=== PATIENT | female | born 1990 | race Caucasian/White ===

== ENCOUNTER 2019-11-03 20:04 | Emergency (ER) | payer OTHER, SELFPAY ==
[2019-11-03 20:12] VITALS: BP 128/78; PULSE 105; RESP 16; TEMP 36.7; O2SAT 96; BMI 19.7
--- NOTE | 2019-11-03 20:51 | DI.RAD.S_ITS ---
PROCEDURE: XR HAND RT MIN 3V INDICATIONS: 1st metacarpal pain, s/p Foosh TECHNIQUE: 3 views of the hand(s) acquired. COMPARISON: None. FINDINGS: Bones: No fractures or dislocations. Carpal bones are normally aligned. No suspicious bony lesions. Soft tissues: No suspicious soft tissue calcifications. IMPRESSION: No acute finding. Dictated by: Michele Wong M.D. on 11/03/2019 at 21:11 Approved by: Michele Wong M.D. on 11/03/2019 at 21:12
--- NOTE | 2019-11-03 20:53 | ED.FALL ---
HPI - Fall <JLUIS Rogers - Last Filed: 11/04/19 03:07> General Chief Complaint: Fall Stated Complaint: CONCUSSION Time Seen by Provider: 11/03/19 20:47 Source: patient Mode of arrival: Ambulatory Limitations: no limitations History of Present Illness HPI Narrative: This is a pleasant 29-year-old female, nonsmoker, without noncontributing medical history presents to ED with family with chief complain of left-sided headache, nausea, laceration to right scalp, right thumb metacarpal pain with movement after she fell. Patient was bathing a dog stepped on a puddle of water and slipped and fell struck her right-sided head to a door on door jam and s/p FOOSH on right dominant hand about 6 hours ago. Patient denies losing consciousness, vision change, vomiting, or seizure activities after the fall. Patient reports throbbing pain in her right hand worsens with movement. She reports intact sensation. 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 Reports current on tetanus immunization. She is not on anticoagulants. Related Data Allergies Allergy/AdvReac Type Severity Reaction Status Date / Time cephalexin AdvReac Verified 11/03/19 21:24 Sulfa (Sulfonamide AdvReac Verified 11/03/19 21:23 Antibiotics) Review of Systems <JLUIS Rogers - Last Filed: 11/04/19 03:07> Review of Systems Narrative: General: Denies fever, chills, fatigue, malaise, sweats. HEENT: See HPI Respiratory: Denies dyspnea, cough, wheezing, hemoptysis, sputum. Cardiovascular: Denies chest pain, palpitations, orthopnea, edema. Gastrointestinal: Denies nausea, vomiting, abdominal pain, diarrhea, constipation, melena. : Denies dysuria, frequency, incontinence, hematuria, urinary retention. Musculoskeletal: Denies weakness, joint pain or bony pain. Skin: See HPI Neurologic: See HPI Psychiatric: No concerning psychosocial issues. 12-point review of systems is negative except for those stated above. Patient History <JLUIS Rogers - Last Filed: 11/04/19 03:07> Medical History (Updated 11/03/19 @ 21:24 by JLUIS Rogers) No significant past medical history (Acute) Surgical History (Updated 11/03/19 @ 20:58 by JLUIS Rogers) No pertinent past surgical history (Acute) Social History Smoking Status: Never smoker Smoking Status: Never smoker Substance Use Type: does not use Exam <JLUIS Rogres - Last Filed: 11/04/19 03:07> Narrative Exam Narrative: GEN: Alert, oriented x 3, well appearing and nourished, and in no acute distress. Head: Normal cephalic without step-offs or hematoma. Right parietal lobe tender to palpate. Approximate 1.5 cm superficial laceration to right parietal lobe. No active bleeding. EYES: Pupils are equal, round, and reactive to light and accommodation. Extraocular muscles are intact bilaterally. There is no subconjunctival hemorrhage, exudate and sclera non-icteric. ENT: Bilateral auditory canals without drainage. No Lopez signs. Hearing grossly intact. Nose without bleeding, purulent discharge or deviation. Facial sinuses nontender to palpate. Mucous membrane moist, no mucosal lesion. Throat without erythema, tonsillar hypertrophy or exudate. Uvula in midline, airway patent. Neck: Trachea in midline. No JVD, non-tender without lymphadenopathy. No masses or thyroid megaly. Supple, no step-offs, Non-tender and no meningeal signs. CARDIAC: Normal regular rate and rhythm without murmurs, gallops, or rubs. No chest wall tenderness. No peripheral edema, cyanosis or pallor. Capillary refill is less than 2 seconds. RESPIRATORY: Lungs are clear to auscultate bilaterally. No cough, wheezes, rales, or rhonchi. No stridor, respiratory distress, increase work of breathing, or accessary muscle used. ABD: Abdomen soft, nontender and non-distended. No guarding or rebound tenderness to palpate. Bowel sounds are normal in all 4 quadrants. There is no palpable masses or organomegaly. SKIN: Warm, dry, normal color for patient. No erythema, lesions or rash over visible areas. BACK: Nontender without deformity or crepitance. No flank tenderness. NEUROLOGICAL: Alert and oriented to place, time and person. Sensation and motor function intact bilaterally. No facial droops, dysphasia. PSYCHIATRIC: Good judgement and reason, without hallucinations, abnormal affect or abnormal behaviors during the examination. Patient is not suicidal. Initial Vital Signs Initial Vital Signs: Vital Signs Temperature 98.1 F 11/03/19 20:12 Pulse Rate 105 H 11/03/19 20:12 Respiratory Rate 16 11/03/19 20:12 Blood Pressure 128/78 11/03/19 20:12 Pulse Oximetry 96 11/03/19 20:12 Extrem Right upper extremity: wrist Details: normal to inspection, normal ROM, normal vascular exam and radial pulse present; no swelling and no deformity and hand Details: normal to inspection, neuromotor exam normal, neurosensory exam normal, tendon exam normal, tenderness Location: of the dorsal hand and of the thumb Location: at the MCP joint, at the proximal phalanx and on the dorsal aspect, vascular exam Details: radial pulse present and normal capillary refill, normal ROM of fingers and no swelling; no unusual warmth, no lacerations and no ecchymosis <Gustavo Heller DO - Last Filed: 11/04/19 03:14> Initial Vital Signs Initial Vital Signs: Vital Signs Temperature 98.1 F 11/03/19 20:12 Pulse Rate 105 H 11/03/19 20:12 Respiratory Rate 16 11/03/19 20:12 Blood Pressure 128/78 11/03/19 20:12 Pulse Oximetry 96 11/03/19 20:12 Procedures <JLUIS Rogers - Last Filed: 11/04/19 03:07> Orthopedic Splinting/Casting Injury #1: Side: right Upper Extremity Injury Location: hand Upper Extremity Immobilizer: wrist splint Post splinting neuro exam: intact Post splinting vascular exam: intact Placed by: Nursing Scores <JLUIS Rogers Last Filed: 11/04/19 03:07> GCS Lasara coma scale eye opening: Spontaneous Lasara coma scale verbal response: Orientated Lasara coma scale motor response: Obey commands Lasara coma scale total score: 15 Nexus Score for C-Spine Focal Neurologic deficit present: No Midline spinal tenderness present: No Altered level of conciousness present: No Intoxication present: No Distracting Injury Present: No Nexus Criteria for C-spine: 0 Course <JLUIS Rogers Last Filed: 11/04/19 03:07> Orders Ordered: ED Orders 11/03/19 20:51 XR hand RT min 3V Stat Discontinued Medications Acetaminophen (Tylenol) 650 mg PO NOW ONE Stop: 11/03/19 20:48 Last Admin: 11/03/19 21:03 Dose: 650 mg Documented by: ROSALIA Hastingsitracin (Bacitracin) 1 applic TOP NOW ONE Stop: 11/03/19 20:48 Last Admin: 11/03/19 21:04 Dose: 1 applic Documented by: ROSALIA Ibuprofen (Advil) 400 mg PO NOW ONE Stop: 11/03/19 20:48 Last Admin: 11/03/19 21:03 Dose: 400 mg Documented by: ROSALIA Ondansetron HCl (Zofran Odt) 4 mg SL NOW ONE Stop: 11/03/19 20:52 Last Admin: 11/03/19 21:03 Dose: 4 mg Documented by: ROSALIA Ondansetron HCl (Zofran Odt Prepack) 1 bottle MISC SEEINSTR ONE Stop: 11/03/19 21:19 Last Admin: 11/03/19 21:25 Dose: 1 bottle Documented by: ROSALIA Vital Signs Vital signs: Vital Signs - 8 hr 11/03/19 20:12 11/03/19 21:39 Temperature 98.1 F Pulse Rate 105 H 89 Respiratory Rate 16 12 Blood Pressure 128/78 127/72 Pulse Oximetry 96 97 <Gustavo Heller DO - Last Filed: 11/04/19 03:14> Orders Ordered: ED Orders 11/03/19 20:51 XR hand RT min 3V Stat Discontinued Medications Acetaminophen (Tylenol) 650 mg PO NOW ONE Stop: 11/03/19 20:48 Last Admin: 11/03/19 21:03 Dose: 650 mg Documented by: ROSALIA Hastingsitracin (Bacitracin) 1 applic TOP NOW ONE Stop: 11/03/19 20:48 Last Admin: 11/03/19 21:04 Dose: 1 applic Documented by: ROSALIA Ibuprofen (Advil) 400 mg PO NOW ONE Stop: 11/03/19 20:48 Last Admin: 11/03/19 21:03 Dose: 400 mg Documented by: ROSALIA Ondansetron HCl (Zofran Odt) 4 mg SL NOW ONE Stop: 11/03/19 20:52 Last Admin: 11/03/19 21:03 Dose: 4 mg Documented by: ROSALIA Ondansetron HCl (Zofran Odt Prepack) 1 bottle MISC SEEINSTR ONE Stop: 11/03/19 21:19 Last Admin: 11/03/19 21:25 Dose: 1 bottle Documented by: ROSALIA Vital Signs Vital signs: Vital Signs - 8 hr 11/03/19 20:12 11/03/19 21:39 Temperature 98.1 F Pulse Rate 105 H 89 Respiratory Rate 16 12 Blood Pressure 128/78 127/72 Pulse Oximetry 96 97 MDM - Fall <JLUIS Rogers - Last Filed: 11/04/19 03:07> Differential Diagnosis Differential diagnosis: Likely fracture of wrist, concussion without loss of consciousness and other (Wrist sprain, closed head injury) Medical Records Attestation: I reviewed the patient's medical records. Imaging Data XR-Hand RT: Radiologist's Impression: [address] [address] XRay Report Signed Patient: Latisha Brooks KMR#: [id number] : 1990Acct:[id number] Age/Sex: 29 / FDate of Service: 11/03/19 Loc: ED Accession Number: [id number] Procedure: XR hand RT min 3V Ordering Provider: Jeremy Rand PROCEDURE: XR HAND RT MIN 3V INDICATIONS: 1st metacarpal pain, s/p Foosh TECHNIQUE: 3 views of the hand(s) acquired. COMPARISON: None. FINDINGS: Bones: No fractures or dislocations. Carpal bones are normally aligned. No suspicious bony lesions. Soft tissues: No suspicious soft tissue calcifications. IMPRESSION: No acute finding. Dictated by: Michele Wong M.D. on 11/03/2019 at 21:11 Approved by: Michele Wong M.D. on 11/03/2019 at 21:12 [facility] Narrative Medical decision making narrative: This is a 29 year female, who had hit her right side parietal lobe on the door jam when she accidentally slipped on a puddle of water in the bathroom after bathe her dog 6 hours before coming into ED. patient reports left-sided headache with slight nausea and mild photosensitivity. Physical exam was unremarkable. There is no neurological deficit. Patient had no loss of consciousness, vomiting, vision change, seizure activities, or unusual behavior. Patient is not currently on anticoagulants. Patient does not complain of mid cervical tenderness. In shared decision making, deferred CT head test at this time but to monitor closed head injury precautions since patient is low risk for major head injury. Patient was medicated with Tylenol and Motrin along Zofran for nausea. She complain of right thumb metacarpal region pain after she has FOOSH to break a fall. Small obvious deformity, swelling, or laceration noted. Intact radial pulse with brisk cap refill. Patient has intact sensation. Right hand x-ray was negative for acute findings such as fractures or dislocations. Prefabricated wrist splint provided for immobilization and support. Advised to use RICE therapy along the [id number] Tylenol and Motrin. Strict return precautions were discussed with patient and advised to rest brain for next couple of days by limiting screen time, reading, using computer. 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 Advised to follow up with unit primary care physician in couple of days for follow-up. Patient verbalized understanding and agreement with the treatment plan. Discharge Plan Departure Patient Disposition: Home Clinical Impression: Laceration CHI (closed head injury) Qualifiers: Encounter type: initial encounter Qualified Code(s): S09.90XA - Unspecified injury of head, initial encounter Hand sprain Qualifiers: Encounter type: initial encounter Laterality: right Qualified Code(s): S63.91XA - Sprain of unspecified part of right wrist and hand, initial encounter Discharge Date/Time: 11/03/19 21:41 Instructions: DI for Closed Head Injury, DI for Minor Laceration, DI for Hand Pain Activity Restrictions/Additional Instructions: You have been diagnosed with [closed head injury, hand sprain, and superficial scalp laceration on right-sided head. No fracture in hand x-ray. It is likely strain/sprain. You can use velcro wrist sprain as needed for discomfort and stabilization. Use cool pack on affected hand next of days frequently. Please avoid prolonged reading, screen time, computer use next couple of days.]. What to do: CT Scans for Minor Head Injuries You have been diagnosed with a minor head injury. This type of injury is unlikely to involve a condition that requires a CT scan for diagnosis, such as a fractured (broken) skull or bleeding in the brain. A CT scan is unlikely to give your doctor useful information. Each CT scan gives you a large dose of ionizing radiation. In some cases, it?s equal to the dose from about 200 chest x-rays. Radiation can damage your cells? genetic material. Your body most often repairs that damage. When it doesn?t, this damage can lead to cancer. Radiation from CT scans is particularly harmful to children in the intermediate, because they have many years of life left to possibly develop cancer. While the risk from a single CT scan is very low, it is better not to get a CT scan unless you need one, in order to limit your lifetime radiation dose. Most head injuries don?t require a CT scan. Even if you briefly passed out, a CT scan is not indicated unless you have symptoms and exam findings concerning for a major head injury. Mild headache, dizziness, fatigue, irritability, and difficulty concentrating are possible after a minor head injury (post-concussion syndrome). However, it is important that you seek re-evaluation by a healthcare provider if you experience any of the following: Changes in mental state or alertness Throwing up again and again Very bad headache that starts suddenly or rapidly worsens Signs of a stroke such as trouble seeing, severe dizziness, weakness or numbness of your face, arm, or leg, especially if only on one side of your body. Created by the Public Health and Injury Prevention Committee, July 2017 Reviewed by the electrical contractor, July 2017 *Take your medications as directed. You can use [id number] Tylenol and or Motrin as needed for discomfort. Use Zofran as needed for nausea. *Follow up with your primary care provider in 2-3 days, call for an appointment. Let them know you were seen in the ED and that we asked you to be seen in follow up. *Return to ED if you have any new, worsening, or concerning symptoms, such as unusual behavior, severe headache, vomiting, vision change, seizure activities, or any acute concerns]. Referrals: [facility] [Outside] Stand Alone Forms: Work Release Note <Gustavo Heller, DO - Last Filed: 11/04/19 03:14> Cosign ED Attending Cosignature Attestation: Dr Heller Co-Sign Statement: I was available for consultation during this patient's emergency department visit. This chart is signed by myself for administrative purposes only. I did not have direct contact with this patient during this visit. They were seen independently by the APC.
[2019-11-03] MEDS: ONDANSETRON 4 MG ODT SL (21:03)
[2019-11-03] MEDS: IBUPROFEN 400 MG TABLET PO (21:03)
[2019-11-03] MEDS: ACETAMINOPHEN 325 MG TABLET 650 MG PO (21:03)
[2019-11-03] MEDS: BACITRACIN OINT 0.9 GM PCKT 1 APPLIC TOP (21:04)
[2019-11-03] MEDS: ONDANSETRON 4 MG ODT PREPACK 1 BOTTLE MISC (21:25)
[2019-11-03 21:39] VITALS: BP 127/72; PULSE 89; RESP 12; O2SAT 97
== END 2019-11-03 21:41 | disposition home or self-care (01) ==
PROVIDERS: Emergency Provider Nurse Practitioner Family
DX: S09.90XA Unspecified injury of head, initial encounter (principal); S63.91XA Sprain of unspecified part of right wrist and hand, initial encounter; W01.0XXA Fall on same level from slipping, tripping and stumbling without subsequent striking against object, initial encounter
CPT/HCPCS: 73130; 99283